=== PATIENT | male | born 1970 | race Caucasian/White ===

== ENCOUNTER 2019-08-06 09:37 | Emergency (ER) | payer MEDICARE, OTHER ==
[~2019-08-06] VITALS: Ht 172.7 cm; Wt 136.1 kg
[2019-08-06] MEDS ORDERED: LOSARTAN POTASS50 MG PO (09:46)
[2019-08-06] MEDS ORDERED: K-TAB ER20 MEQ PO (09:46)
[2019-08-06] MEDS ORDERED: GLUCOPHAGE500 MG PO (09:46)
[2019-08-06] MEDS ORDERED: SPIRONOLACTONE25 MG PO (09:47)
[2019-08-06] MEDS ORDERED: CARVEDILOL12.5 MG PO (09:47)
[2019-08-06] MEDS ORDERED: CITALOPRAM HBR20 MG PO (09:48)
== END 2019-08-06 11:38 | disposition home or self-care (01) ==
LOC: ED 09:37
DX: R07.9 Chest pain, unspecified (principal); R19.7 Diarrhea, unspecified; Z87.891 Personal history of nicotine dependence; Z91.09 Other allergy status, other than to drugs and biological substances; Z79.899 Other long term (current) drug therapy; Z79.84 Long term (current) use of oral hypoglycemic drugs
CPT/HCPCS: 71045; 80053; 84484; 85025; 93005; 93010; 96361; 96374; 99285-25; J2405; J7030